=== PATIENT | female | born 1935 | race Caucasian/White ===

== ENCOUNTER 2024-07-15 13:07 | Emergency (ER) | payer MEDICARE ==
[~2024-07-15] VITALS: Ht 162.6 cm; Wt 56.0 kg
== END 2024-07-15 14:16 | disposition home or self-care (01) ==
LOC: ED 13:07
DX: Z46.6 Encounter for fitting and adjustment of urinary device (principal); I10 Essential (primary) hypertension; E11.9 Type 2 diabetes mellitus without complications; F41.9 Anxiety disorder, unspecified; Z96.0 Presence of urogenital implants